=== PATIENT | male | born 1950 | race Caucasian/White ===

== ENCOUNTER 2016-12-07 10:00 | Inpatient (IN) | payer MEDICARE, BC ==
[~2016-12-07] VITALS: Ht 180.3 cm; Wt 102.3 kg
--- NOTE | ~2016-12-07 | OR ---
[facility]GE[facility] 66 Y [address] ROOM: [place] [address] LOCATION: [facility] ADMIT DATE: 01/01/2017 OR/Procedure Report DISCHARGE DATE: FAMILY PHYSICIAN: Riley Mac MD ATTENDING PHYSICIAN: RACHEL BASILIO SURGEON: Rachel Basilio MD AERODYNAMICS TEACHER: 1. Dalton Carvalho PA-C. 2. Jatinder Asencio CST/ACCOUNT REPRESENTATIVE. DATE OF PROCEDURE: 01/01/2017 PREOPERATIVE DIAGNOSIS: Right shoulder degenerative joint disease (primary osteoarthritis). POSTOPERATIVE DIAGNOSIS: Right shoulder degenerative joint disease (primary osteoarthritis) plus biceps tendonitis. PROCEDURE PERFORMED: 1. Uncemented right total shoulder arthroplasty. 2. Biceps tenodesis. ANESTHESIA: General endotracheal anesthesia plus subcutaneous and periarticular local anesthesia (ropivacaine with epinephrine and Toradol). DRAINS: None. SPECIMEN: None. COMPLICATIONS: None. IMPLANTS: 1. Cintia Dep-[employer] 2.2 mm SureLock suture anchor x1. 2. Cintia-[employer] size 17 x 83 mm uncemented comprehensive shoulder system humeral component with standard humeral neck adapter and 54 mm x 21 mm x 64 mm radius of curvature, modular humeral head. 3. Cintia comprehensive standard uncemented convertible glenoid base plate with 6.5 mm central locking screw x1 and 4.75 mm peripheral locking screws x2. Comprehensive shoulder E1 convertible glenoid polyethylene liner. INDICATION FOR PROCEDURE: Mr. Chanel is a 66-year-old male presenting with severe right shoulder glenohumeral degenerative joint disease and associated severely compromised activities of daily living. Risks, benefits, limitations, and alternatives to total shoulder arthroplasty have been thoroughly reviewed, and informed consent has been granted. We have specifically reviewed risks and implications of infection, neurovascular [facility] AGE: 66 Y [address] ROOM: [place] [address] LOCATION: [facility] ADMIT DATE: 01/01/2017 OR/Procedure Report DISCHARGE DATE: FAMILY PHYSICIAN: Riley Mac MD ATTENDING PHYSICIAN: RACHEL BASILIO complications, stiffness, instability, wear, loosening, persistent pain, and the potential need for further surgery. Informed consent has been granted. DESCRIPTION OF PROCEDURE: Mr. Chanel was positioned in a modified beach chair position after administration of general endotracheal anesthesia and prophylactic antibiotics. His right shoulder and right upper extremity were prepped and draped with vigilant sterile technique. Examination under anesthesia demonstrated no active skin lesions or masses or muscle atrophy. There was no instability. Passive forward elevation was limited to 90 degrees. Passive external rotation was limited to 30 degrees. The shoulder was approached through a standard deltopectoral incision. The cephalic vein was identified and was mobilized laterally with the deltoid as the deltopectoral interval was bluntly developed. The axillary nerve was identified and was vigilantly protected throughout the entire case. The outer surface of the rotator cuff was normal. There was a large amount of fluid within the biceps tendon sheath. The biceps tendon sheath was divided longitudinally. The biceps tendon was significantly thickened. There were osteophytes impinging on the biceps tendon from the anterior medial margin of the humeral head. These were removed. The biceps tendon was released at the proximal margin of the intertubercular groove and tagged with #1 Ethibond. The biceps tendon was tenodesed to the bicipital groove using all 4 strands of a [employer] SureLock suture anchor prior to insertion of the final humeral component. The subscapularis tendon was divided longitudinally with the anterior capsule approximately 6-mm medial to its insertion. The subscapularis tendon was tagged for later repair. There was a large amount of benign-appearing translucent synovial fluid. There was full-thickness loss of articular cartilage throughout the humeral head and glenoid. There was a 1-cm osteophyte at the inferior margin of the humeral head. This was excised. The humeral head resection was performed with 25 degrees of retroversion (corresponding to the anatomic neck of the koi humerus). The humeral canal was reamed by hand up to a size 17 with tapered conical reamers. The size 17 reamer tightly engaged the endosteal cortex of the proximal humerus. The proximal humerus was subsequently broached to a size 17. The size 17 broach obtained excellent axial and rotational stability. The humeral head was sized and appropriate offset was determined. Posterior humeral head osteophytes were excised. Circumferential glenoid exposure was obtained. The intraarticular remnant of the biceps tendon was excised and degenerative remnants of the glenoid labrum were excised. The glenoid face was reamed over a guidewire and the guidewire was removed prior to impacting the final uncemented glenoid base plate into PATIENT'S NAME: ZIA CHANEL [facility] AGE: 66 Y [address] ROOM: [place] [id number] LOCATION: [facility] ADMIT DATE: 01/01/2017 OR/Procedure Report DISCHARGE DATE: FAMILY PHYSICIAN: Riley Mac MD ATTENDING PHYSICIAN: RACHEL BASILIO position. An excellent press fit was obtained. Supplemental fixation consisted of 1 central 6.5 mm locking screw and 2 peripheral 4.75 mm locking screws. Each of these obtained excellent purchase. The final glenoid liner was impacted into position and circumferential palpation confirmed that it was fully and stably seated. A trial humeral stem was impacted into position and a trial reduction was performed. There was appropriate humeral height, soft-tissue tension, and stability. The trial humeral components were removed. The biceps tenodesis was completed. The final humeral stem was impacted into position and obtained excellent axial and rotational stability. The trunnion was cleansed and dried, and the final humeral head was impacted into position. A final reduction was performed. There was appropriate humeral height, stability, soft-tissue tension, and range of motion. The entire incision and entire joint space were thoroughly irrigated with bacteriostatic pulsatile saline lavage at this point as well as several times throughout the case. The subscapularis tendon was repaired with multiple [id number] interrupted #2 Orthocord sutures. Periarticular soft tissues were infiltrated with local anesthetic. Subcutaneous tissues were reapproximated with simple deep interrupted 0 Vicryl sutures. The incision was closed with superficial buried interrupted 2-0 Vicryl sutures, followed by a running subcuticular 3-0 Monocryl suture, followed by Dermabond, followed by Steri-Strips with benzoin. The dressing consisted of an occlusive Mepilex dressing. A shoulder immobilizer was placed, and the patient was extubated and transported to the Postanesthesia Care Unit in stable, comfortable condition. It should be noted that the physician's agency sales management assistant played an active, integral role throughout this entire operation. By providing expert retraction, they PATIENT'S NAME: ZIA CHANEL [facility] AGE: 66 Y [address] ROOM: [place] [address] LOCATION: [facility] ADMIT DATE: 01/01/2017 OR/Procedure Report DISCHARGE DATE: FAMILY PHYSICIAN: Riley Mac MD ATTENDING PHYSICIAN: RACHEL BASILIO greatly facilitated and expedited safe and effective exposure of the proximal humerus and glenoid for preparation and implantation of the components. They were also actively involved in patient's positioning, prepping and draping, as well as wound closure. MD MACIE MILES/abigail /[id number] d: 01/02/17 0116 t: 01/19/17 0749, OPERATIVE SUMMARY
[2016-12-07] MEDS ORDERED: ZYLOPRIM100 MG PO (10:23)
[2016-12-07] MEDS ORDERED: HYDROCHLOROTH12.5 MG PO (10:23)
[2016-12-07] MEDS ORDERED: PRINIVIL OR ZES10 MG PO (10:25)
[2016-12-07] MEDS ORDERED: INVOKANA300 MG PO (10:25)
[2016-12-07] MEDS ORDERED: AMARYL4 MG PO (10:25)
[2016-12-07] MEDS ORDERED: ZOCOR40 MG PO (10:26)
[2016-12-07] MEDS ORDERED: GLUCOPHAGE1000 MG PO (10:26)
[2016-12-07] MEDS ORDERED: METOPROLOL TART25 MG PO (10:26)
[2016-12-07] MEDS ORDERED: ASPIRIN LO-DOSE81 MG PO (10:26)
[2016-12-07] MEDS ORDERED: FISH OIL 1,2001 EAC1 PO (10:27)
[2016-12-07] MEDS ORDERED: PRILOSEC OTC20 MG PO (10:27)
[2016-12-07] MEDS ORDERED: COQ-10100 MG PO (10:28)
[2016-12-07] MEDS ORDERED: FLAX SEED OIL1000 MG PO (10:28)
[2017-01-01] MEDS ORDERED: COLACE100 MG PO (10:17)
--- NOTE | 2017-01-01 17:30 | NUR ---
Significant Event:Received from PACU at 1630. 3rd 1/2hr at 1845. Mepilex dressing dry and intact to rt shoulder. Shoulder immobilizer on. O2 at 2L per nasal cannula. Taking water. No void Follow up:
--- NOTE | 2017-01-02 07:51 | NUR ---
Significant Event: Vital signs stable. On RA. Mepilex dressing to R) shoulder is CDI. 1+ radial pulse, otherwise CSM WNL. Immobilzer on. Ice to shoulder. Up to bathroom with SBA. Pain controlled with scheduled toradol, tylenol and prn dilaudid. Will go home today. Accucheck at HS was 160. Diabetic booklet given. Follow up:
[2017-01-02] MEDS ORDERED: TYLENOL EXTRA500 MG PO (10:51)
[2017-01-02] MEDS ORDERED: NEURONTIN300 MG PO (10:52)
[2017-01-02] MEDS ORDERED: MIRALAX17 GM PO (10:54)
[2017-01-02] MEDS ORDERED: DILAUDID 2MG(HYD2 MG PO (10:55)
--- NOTE | 2017-01-02 11:30 | NUR ---
Chart review was completed. Spoke to Terrell Schaefer and no discharge concerns. Did not see patient.
--- NOTE | 2017-01-02 19:19 | NUR ---
PATIENT [id number] TO HOME AT 1350. RX SLIP, RETURN APPT, USE OF IMMOBLIZER, EXERCISES, WOUDND CARE, NEW MED REVIEWED, SHOWERING ALL REVIEWED WITH PATIENT AND . BOTH IN AGREEMENT THAT THEY UNDERSTAND THE INSTRUCTIONS. DIMSISSAL TEACHING REVIEWED AND VERBALIZES UNDERSTANDING. TO FRONT DOOR IN W/C MEET .
== END 2017-01-02 13:50 | disposition disaster alternative care site (69) | DRG 483 ==
LOC: G3N 01-01 09:16
PROVIDERS: ADMIT Orthopaedic Surgery
PROC: 0LS30ZZ Reposition Right Upper Arm Tendon, Open Approach (ICD-10-PCS; principal; 2017-01-01)
PROC: 0RRJ0JZ Replacement of Right Shoulder Joint with Synthetic Substitute, Open Approach (ICD-10-PCS; principal; 2017-01-01)
DX: M19.011 Primary osteoarthritis, right shoulder (principal); I10 Essential (primary) hypertension; M75.21 Bicipital tendinitis, right shoulder; I25.10 Atherosclerotic heart disease of native coronary artery without angina pectoris; Z96.652 Presence of left artificial knee joint; E11.9 Type 2 diabetes mellitus without complications; Z79.84 Long term (current) use of oral hypoglycemic drugs
CPT/HCPCS: C1713; C1776; J0131; J0690; J1100; J1885; J2001; J2250; J2405; J2795; J3010; J7030; J7120